=== PATIENT | male | born 1970 | race Caucasian/White ===

== ENCOUNTER 2017-12-01 19:41 | Emergency (ER) | payer BC ==
[~2017-12-01] VITALS: Ht 172.7 cm; Wt 102.4 kg
[~2017-12-01 19:41] MED LIST: AMOXICILLIN500 MG OR; ASPIRIN325 MG PO; CLONIDINE0.1 MG OR; EXFORGE1 TA2 PO; FLEXERIL10 MG OR; LOPRESSOR50 MG OR; LORTAB 10 PO; LORTAB 5 OR; LORTAB 5/3255 MG PO; LORTAB5 PO; SG ASPIRIN325 MG OR; ULTRAM50 MG OR
[2017-12-01 21:32] VITALS: BP 135/81
== END 2017-12-01 21:32 | disposition home or self-care (01) | DRG 603 ==
LOC: ED 19:41
PROC: 0X940ZZ Drainage of Right Axilla, Open Approach (ICD-10-PCS; principal; 2017-12-01)
DX: L02.411 Cutaneous abscess of right axilla (principal); I10 Essential (primary) hypertension; F17.220 Nicotine dependence, chewing tobacco, uncomplicated

== ENCOUNTER 2020-11-09 10:35 | Emergency (ER) | payer BC ==
[~2020-11-09] VITALS: Ht 172.7 cm; Wt 100.0 kg
[2020-11-09 11:23] LABS: HEMATOCRIT 41.7 % (39.0-50.0); HEMOGLOBIN 14.7 g/dl (14.0-18.0); MEAN CORPUSCULAR HGB 32.1 pG CALC (26.0-32.0); MEAN CORPUSCULAR HGB CONC 35.3 g/dL CAL (32.0-36.0); NEUT# 5.76 thou/uL (1.82-7.42); RED BLOOD COUNT 4.58 mill/uL (4.70-6.10); RED CELL DISTRI WIDTH 11.9 % (11.5-15.5)
[2020-11-09 11:33] LABS: ALBUMIN 4.3 g/dL (3.2-5.0); ALKALINE PHOSPHATASE 75 u/l (38-126); ANION GAP 13 (6-22 (CALC)); BUN 20 mg/dL (9-20); BUN/CREATININE RATIO 29 (12-20 (CALC)); CARBON DIOXIDE 27 mmol/l (22-30); CHLORIDE 102 mmol/l (95-108); CREATININE 0.7 mg/dL (0.7-1.3); D-DIMER 1.98 mg/L (0.19-0.60); GFR > 60 ML/MIN (>=60 (CALC)); GFR FOR AFR.AMER. > 60 ML/MIN (>=60 (CALC)); POTASSIUM 3.6 mmol/l (3.5-5.1); SODIUM 138 mmol/l (137-146); TOTAL PROTEIN 8.1 g/dL (6.3-8.2)
[2020-11-09 11:34] LABS: BILIRUBIN, TOTAL 1.1 mg/dL (0.0-1.4); SGOT/AST 72 u/l (17-59)
[2020-11-09 11:37] LABS: ACT PARTIAL THROMBO TIME 24.1 SECONDS (20.0-32.5); PROTHROMBIN TIME 10.6 SECONDS (9.0-12.5)
[2020-11-09] MEDS ORDERED: VENTOLIN HFA IN (14:06)
[2020-11-09] MEDS ORDERED: DECADRON2 MG PO (14:06)
[2020-11-09] MEDS ORDERED: ROBITUSSIN AC10 ML PO (14:06)
[2020-11-09] MEDS ORDERED: ZPAK PO (14:06)
[2020-11-09 14:11] VITALS: BP 164/80
== END 2020-11-09 14:14 | disposition home or self-care (01) | DRG 177 ==
LOC: ED 10:35
DX: U07.1 COVID-19 (principal); J12.82 Pneumonia due to coronavirus disease 2019; J98.59 Other diseases of mediastinum, not elsewhere classified; I10 Essential (primary) hypertension; F17.290 Nicotine dependence, other tobacco product, uncomplicated
CPT/HCPCS: Q9967

== ENCOUNTER 2021-12-17 18:32 | Emergency (ER) | payer BC ==
[~2021-12-17] VITALS: Ht 172.7 cm; Wt 105.0 kg
[~2021-12-17 18:32] MED LIST changes: +DECADRON2 MG PO; +ROBITUSSIN AC10 ML PO; +VENTOLIN HFA IN; +ZPAK PO
[2021-12-17] MEDS ORDERED: AMOXICILLIN500 MG PO (20:30)
[2021-12-17 20:33] VITALS: BP 146/72
== END 2021-12-17 20:39 | disposition home or self-care (01) | DRG 605 ==
LOC: ED 18:32
DX: S60.452A Superficial foreign body of right middle finger, initial encounter (principal); W45.8XXA Other foreign body or object entering through skin, initial encounter

== ENCOUNTER 2022-07-16 20:16 | Emergency (ER) | payer BC ==
[2022-07-16] VITALS (9 sets, daily range): BP systolic 133–153; BP diastolic 89–108
[~2022-07-16] VITALS: Ht 172.7 cm; Wt 112.5 kg
[~2022-07-16 20:16] MED LIST changes: +AMOXICILLIN500 MG PO
[2022-07-16 21:59] LABS: BASO% 0.3 % (0-3); EOS% 1.6 % (0-8); HEMATOCRIT 44.7 % (39.0-50.0); HEMOGLOBIN 15.6 g/dl (14.0-18.0); IMMATURE GRANULOCYTES 0.2 % (0.0-5.0); LYMPH% 24.5 % (15-41); MEAN CELL VOLUME 90.5 fL CALC (80.0-100.0); MEAN CORPUSCULAR HGB 31.6 pG CALC (26.0-32.0); MEAN CORPUSCULAR HGB CONC 34.9 g/dL CAL (32.0-36.0); NEUT# 7.7 thou/uL (1.82-7.42); NEUT% 63.4 % (42-76); RED BLOOD COUNT 4.94 mill/uL (4.70-6.10); RED CELL DISTRI WIDTH 12.8 % (11.5-15.5)
[2022-07-16 22:11] LABS: ALKALINE PHOSPHATASE 90 u/l (38-126); AMYLASE 85 u/l (30-110); ANION GAP 13 (6-22 (CALC)); BUN 23 mg/dL (9-20); BUN/CREATININE RATIO 23 (12-20 (CALC)); CARBON DIOXIDE 28 mmol/l (22-30); CHLORIDE 103 mmol/l (95-108); GFR FOR AFR.AMER. > 60 ML/MIN (>=60 (CALC)); GFR OTHER RACES > 60 ML/MIN (>=60 (CALC)); LIPASE 141 u/l (23-300); POTASSIUM 3.1 mmol/l (3.5-5.1); SGOT/AST 35 u/l (17-59); SODIUM 142 mmol/l (137-146); TOTAL PROTEIN 8.3 g/dL (6.3-8.2)
[2022-07-16 22:14] LABS: BILIRUBIN, TOTAL 0.5 mg/dL (0.2-1.3)
[2022-07-16] MEDS ORDERED: BACTRIM DS1 TAB PO (23:59)
[2022-07-16] MEDS ORDERED: KEFLEX500 MG PO (23:59)
[2022-07-16] MEDS ORDERED: ULTRAM50 MG PO (23:59)
[2022-07-17] VITALS: BP 150/93
[2022-07-17 00:16] VITALS: BP 132/92
[2022-07-17 01:00] VITALS: BP 132/92
== END 2022-07-17 01:15 | disposition home or self-care (01) | DRG 603 ==
LOC: ED 20:16
PROVIDERS: Emergency Medicine
DX: L03.311 Cellulitis of abdominal wall (principal); K42.9 Umbilical hernia without obstruction or gangrene; I10 Essential (primary) hypertension; F17.220 Nicotine dependence, chewing tobacco, uncomplicated
CPT/HCPCS: Q9967